=== PATIENT | female | born 1980 | race African-American/Black ===

== ENCOUNTER 2017-04-10 07:52 | Emergency (ER) | payer BC ==
[2017-04-10] MEDS ORDERED: ASPIRIN 81 MG TABLET, CHEWABLE PO ONE (08:12)
[2017-04-10 08:44] LABS: ABSOLUTE EOSINOPHILS # (AUTO) 0.1 10^3/uL (0.0-0.6); ABSOLUTE LYMPHOCYTES (AUTO) 2.3 10^3/uL (0.5-4.7); ABSOLUTE MONOCYTES (AUTO) 0.3 10^3/uL (0.1-1.4); ABSOLUTE NEUT (AUTO) 1.3 10^3/uL (1.7-8.2); BASOPHILS % (AUTO) 0.9 % (0-2); EOSINOPHILS % (AUTO) 1.3 % (0-6); HEMATOCRIT 40.9 % (36.0-47.0); HEMOGLOBIN 13.9 g/dL (12.0-15.5); LYMPHOCYTES % (AUTO) 57.3 % (13-45); MEAN CORPUSCULAR HEMOGLOBIN 28.9 pg (27.0-33.4); MEAN CORPUSCULAR VOLUME 85 fl (80-97); MONOCYTES % (AUTO) 8.3 % (3-13); PLATELET COUNT 256 10^3/uL (150-450); RED BLOOD COUNT 4.83 10^6/uL (3.72-5.28); SEGMENTED NEUTROPHILS % (AUTO) 32.2 % (42-78); TOTAL CELLS COUNTED % (AUTO) 100 %
--- NOTE | 2017-04-10 08:46 | EKG REPORT ---
SEVERITY:- NORMAL ECG - SINUS RHYTHM : Confirmed by: Etelvina Beard 10-Apr-2017 08:45:59
[2017-04-10 09:04] LABS: ALANINE AMINOTRANSFERASE 19 U/L (9-52); ALKALINE PHOSPHATASE 86 U/L (38-126); ANION GAP 7 (5-19); ASPARTATE AMINO TRANSFERASE 17 U/L (14-36); BILIRUBIN,DIRECT 0.2 mg/dL (0.0-0.4); BILIRUBIN,TOTAL 0.7 mg/dL (0.2-1.3); BLOOD UREA NITROGEN 10 mg/dL (7-20); CALCIUM 10.1 mg/dL (8.4-10.2); CARBON DIOXIDE 25 mmol/L (22-30); CHLORIDE 110 mmol/L (98-107); CREATINE KINASE 78 U/L (30-135); GLUCOSE 89 mg/dL (75-110); SODIUM 142.3 mmol/L (137-145); TOTAL PROTEIN 6.9 g/dL (6.3-8.2)
[2017-04-10 09:16] LABS: CREATINE KINASE MB < 0.22 ng/mL (<4.55); TROPONIN I < 0.012 ng/mL
--- NOTE | 2017-04-10 09:35 | RADIOLOGY REPORT (SQ) ---
EXAM DESCRIPTION: CHEST SINGLE VIEW COMPLETED DATE/TIME: 04/10/2017 9:23 am REASON FOR STUDY: cp rme COMPARISON: None. EXAM PARAMETERS: NUMBER OF VIEWS: One view. TECHNIQUE: Single frontal radiographic view of the chest acquired. RADIATION DOSE: NA LIMITATIONS: None. FINDINGS: LUNGS AND PLEURA: No opacities, masses or pneumothorax. No pleural effusion. MEDIASTINUM AND HILAR STRUCTURES: No masses. Contour normal. HEART AND VASCULAR STRUCTURES: Heart normal in size. Normal vasculature. BONES: No acute findings. HARDWARE: None in the chest. OTHER: No other significant finding. IMPRESSION: NO ACUTE RADIOGRAPHIC FINDING IN THE CHEST. TECHNICAL DOCUMENTATION: JOB ID: [id number] [employer]- All Rights Reserved
[2017-04-10 10:05] LABS: APPEARANCE,URINE SLIGHTLY-CLOUDY; BILIRUBIN,URINE NEGATIVE (NEGATIVE); COLOR,URINE YELLOW; GLUCOSE, URINE NEGATIVE (NEGATIVE); KETONES,URINE NEGATIVE (NEGATIVE); LEUKOCYTE ESTERASE,URINE NEGATIVE (NEGATIVE); NITRITE,URINE NEGATIVE (NEGATIVE); PROTEIN,URINE NEGATIVE (NEGATIVE); URINE SPECIFIC GRAVITY 1.019
--- NOTE | 2017-04-10 10:15 | ER Document Report ---
ED Cardiac - General Chief Complaint: Chest Pain Stated Complaint: CHEST PAINS Time Seen by Provider: 04/10/17 09:33 Mode of Arrival: Ambulatory Information source: Patient Notes: Patient presents complaining of left-sided chest pain that started yesterday. It has been intermittent. Nothing makes it better or worse. Patient states she has not had this pain before. No previous history of cardiac disease. No history of any type of cardiac evaluation in the past. No family history. She does smoke. She has taken Depakote shot in the past but not recently. Patient denies shortness of breath. No cough cold or congestion. She states she has been under a lot of stress. She had some numbness in her left arm and hand yesterday. He has been mild to moderate. It is been a pressure-like sensation. TRAVEL OUTSIDE OF THE [place] IN LAST 30 DAYS: No - Related Data Allergies/Adverse Reactions: No Known Allergies Allergy (Verified 04/10/17 09:31) Past Medical History - General Information source: Patient - Social History Smoking Status: Current Every Day Smoker Chew tobacco use (# tins/day): No Frequency of alcohol use: None Drug Abuse: None Family History: Reviewed & Not Pertinent Patient has suicidal ideation: No Patient has homicidal ideation: No Pulmonary Medical History: Reports: Hx Asthma, Hx COPD Neurological Medical History: Reports: Hx Migraine Renal/ Medical History: Denies: Hx Peritoneal Dialysis - Immunizations Immunizations up to date: Yes Hx Diphtheria, Pertussis, Tetanus Vaccination: Yes Review of Systems - Review of Systems Constitutional: denies: Chills, Fever Cardiovascular: denies: Chest pain, Palpitations Respiratory: denies: Cough, Short of breath Gastrointestinal: denies: Diarrhea, Vomiting -: Yes All other systems reviewed and negative Physical Exam - Vital signs Vitals: Temp Pulse Resp BP Pulse Ox 98.2 F 73 18 116/71 99 04/10/17 08:07 04/10/17 08:07 04/10/17 08:07 04/10/17 08:07 04/10/17 08:07 Interpretation: Normal - General General appearance: Appears well, Alert In distress: None - HEENT Head: Normocephalic, Atraumatic Eyes: Normal Pupils: PERRL - Respiratory Respiratory status: No respiratory distress Chest status: Nontender Breath sounds: Normal Chest palpation: Normal - Cardiovascular Rhythm: Regular Heart sounds: Normal auscultation Murmur: No - Abdominal Inspection: Normal Distension: No distension Bowel sounds: Normal Tenderness: Nontender Organomegaly: No organomegaly - Back Back: Normal, Nontender - Extremities General upper extremity: Normal inspection, Nontender, Normal color, Normal ROM , Normal temperature General lower extremity: Normal inspection, Nontender, Normal color, Normal ROM , Normal temperature, Normal weight bearing. No: Phyllis's sign - Neurological Neuro grossly intact: Yes Cognition: Normal Orientation: AAOx4 [place] Coma Scale Eye Opening: Spontaneous [place] Coma Scale Verbal: Oriented Veness[place] Coma Scale Motor: Obeys Commands [place] Coma Scale Total: 15 Speech: Normal Motor strength normal: LUE, RUE, LLE, RLE Sensory: Normal - Psychological Associated symptoms: Normal affect, Normal mood - Skin Skin Temperature: Warm Skin Moisture: Dry Skin Color: Normal Course - Vital Signs Vital signs: Temp Pulse Resp BP Pulse Ox 98.2 F 73 18 116/71 99 04/10/17 08:07 04/10/17 08:07 04/10/17 08:07 04/10/17 08:07 04/10/17 08:07 - Laboratory Result Diagrams: 04/10/17 08:25 04/10/17 08:25 Laboratory results interpreted by me: 04/10/17 04/10/17 04/10/17 08:25 08:25 09:45 Seg Neutrophils % 32.2 L Lymphocytes % 57.3 H Absolute Neutrophils 1.3 L Chloride 110 H Urine Blood SMALL H Urine Urobilinogen 4.0 H - EKG Interpretation by Ak EKG shows normal: Sinus rhythm Rate: Normal Rhythm: NSR [place]/QRS: No: Right axis deviation, Left axis deviation Discharge - Discharge Clinical Impression: Atypical chest pain Condition: Stable Disposition: HOME, SELF-CARE Instructions: Chest Pain of Unclear Cause ([facility]) Additional Instructions: Please call your primary care doctor as soon as possible to arrange follow-up. Please discuss an outpatient cardiac stress test. Forms: Return to Work
[2017-04-10 10:28] VITALS: BP 119/74
== END 2017-04-10 10:33 | disposition home or self-care (01) ==
LOC: ER 07:52
DX: R07.89 Other chest pain (principal); R20.0 Anesthesia of skin; F17.200 Nicotine dependence, unspecified, uncomplicated; J44.9 Chronic obstructive pulmonary disease, unspecified
CPT/HCPCS: 36415; 71045; 80053; 81001; 81025; 82550; 82553; 84484; 85025; 85379; 93005; 93010; 99285

== ENCOUNTER 2017-04-24 11:34 | Emergency (ER) | payer BC ==
[2017-04-24] MEDS ORDERED: HYDROCODONE/ACETAMINOPHEN 5-325 MG TABLET PO ONE (13:17)
--- NOTE | 2017-04-24 13:18 | ER Document Report ---
ED Medical Screen (RME) - General Chief Complaint: Cyst Stated Complaint: ABSCESS Time Seen by Provider: 04/24/17 13:17 Notes: Patient states she has a large Bartholin's cyst. She states she has had them in the past. She states this one spreads towards her buttocks. She also states she has had no bowel movement for 2 weeks. TRAVEL OUTSIDE OF THE [place] IN LAST 30 DAYS: No - Related Data Allergies/Adverse Reactions: No Known Allergies Allergy (Verified 04/24/17 11:36) Past Medical History - Social History Chew tobacco use (# tins/day): No Frequency of alcohol use: None Drug Abuse: None Pulmonary Medical History: Reports: Hx Asthma, Hx COPD Neurological Medical History: Reports: Hx Migraine Renal/ Medical History: Denies: Hx Peritoneal Dialysis - Immunizations Immunizations up to date: Yes Hx Diphtheria, Pertussis, Tetanus Vaccination: Yes Physical Exam - Vital signs Vitals: Temp Pulse Resp BP Pulse Ox 98.7 F 74 20 110/66 100 04/24/17 11:57 04/24/17 11:57 04/24/17 11:57 04/24/17 11:57 04/24/17 11:57 Course - Vital Signs Vital signs: Temp Pulse Resp BP Pulse Ox 98.7 F 74 20 110/66 100 04/24/17 11:57 04/24/17 11:57 04/24/17 11:57 04/24/17 11:57 04/24/17 11:57
[2017-04-24 14:22] LABS: APPEARANCE,URINE CLOUDY; BILIRUBIN,URINE NEGATIVE (NEGATIVE); COLOR,URINE YELLOW; GLUCOSE, URINE NEGATIVE (NEGATIVE); KETONES,URINE NEGATIVE (NEGATIVE); LEUKOCYTE ESTERASE,URINE LARGE (NEGATIVE); NITRITE,URINE NEGATIVE (NEGATIVE); PROTEIN,URINE NEGATIVE (NEGATIVE)
--- NOTE | 2017-04-24 15:53 | ER Document Report ---
HPI - HPI Patient complains to provider of: Abscess Onset: Other - Chronic for 8 years, worse over the past few days Onset/Duration: Worse Quality of pain: Sharp Pain Level: 5 Context: Patient complains of a Bartholin's abscess that has been present for the past 8 years. Patient states that over the past few days the area has become more tender with standing. Patient states that she has had an incision and drainage procedure in the past although the swollen area has never completely gone down. Patient denies any fever. Patient does states she has had some mild dysuria symptoms that started today. Associated Symptoms: Other - Bartholin's gland abscess. denies: Fever Exacerbated by: Movement Relieved by: Denies Similar symptoms previously: Yes Recently seen / treated by doctor: No - ROS ROS below otherwise negative: Yes Systems Reviewed and Negative: Yes All other systems reviewed and negative - CONSTITUTIONAL Constitutional: DENIES: Fever, Chills - GASTROINTESTINAL Gastrointestinal: DENIES: Nausea, Patient vomiting - URINARY Urinary: REPORTS: Dysuria. DENIES: Urgency, Frequency - REPRODUCTIVE Reproductive: DENIES: : - DERM Skin Color: Normal Notes: Abscess to right labia Past Medical History - General Information source: Patient - Social History Smoking Status: Current Every Day Smoker Chew tobacco use (# tins/day): No Frequency of alcohol use: None Drug Abuse: None Occupation: [employer] Family History: Reviewed & Not Pertinent Patient has suicidal ideation: No Patient has homicidal ideation: No Pulmonary Medical History: Reports: Hx Asthma, Hx COPD Neurological Medical History: Reports: Hx Migraine Renal/ Medical History: Denies: Hx Peritoneal Dialysis Surgical Hx: Negative - Immunizations Immunizations up to date: Yes Hx Diphtheria, Pertussis, Tetanus Vaccination: Yes Vertical Provider Document - CONSTITUTIONAL Agree With Documented VS: Yes Exam Limitations: No Limitations General Appearance: WD/WN, No Apparent Distress - INFECTION CONTROL TRAVEL OUTSIDE OF THE [place] IN LAST 30 DAYS: No - HEENT HEENT: Atraumatic, Normocephalic - NECK Neck: Normal Inspection, Supple - RESPIRATORY Respiratory: Breath Sounds Normal, No Respiratory Distress O2 Sat by Pulse Oximetry: 100 - CARDIOVASCULAR Cardiovascular: Regular Rate, Regular Rhythm - REPRODUCTIVE Female Genitalia: Abnormal Inspection - Large Bartholin's gland abscess to the right side - BACK Back: Normal Inspection - MUSCULOSKELETAL/EXTREMETIES Musculoskeletal/Extremeties: MAEW - NEURO Level of Consciousness: Awake, Alert, Appropriate Motor/Sensory: No Motor Deficit, No Sensory Deficit - DERM Integumentary: Warm, Abscess - Bartholin's gland Course - Re-evaluation Re-evalutation: 04/24/17 17:[address] Buitrago regarding patient presentation. Recommends obtaining culture and treating with Bactrim as well as covering for gonorrhea and chlamydia. Patient with resolved swollen lump to perineum after incision and drainage procedure. Patient tolerated procedure well. Patient without any fever. Patient with signs concerning for UTI as well. No concern for sepsis or pyelonephritis at this time. Good return precautions provided to patient. - Vital Signs Vital signs: Temp Pulse Resp BP Pulse Ox 98.7 F 74 20 110/66 100 04/24/17 11:57 04/24/17 11:57 04/24/17 11:57 04/24/17 11:57 04/24/17 11:57 - Laboratory Laboratory results interpreted by me: 04/24/17 13:43 Urine Blood MODERATE H Urine Urobilinogen 2.0 H Ur Leukocyte Esterase LARGE H 04/24/17 18:56 Labs- Entire Visit 04/24/17 13:43 Urine Color YELLOW Urine Appearance CLOUDY Urine pH 5.0 Ur Specific [place] 1.030 Urine Protein NEGATIVE Urine Glucose (UA) NEGATIVE Urine Ketones NEGATIVE Urine Blood MODERATE H Urine Nitrite NEGATIVE Urine Bilirubin NEGATIVE Urine Urobilinogen 2.0 H Ur Leukocyte Esterase LARGE H Urine WBC (Auto) 41 Urine RBC (Auto) 18 Urine Bacteria (Auto) TRACE Squamous Epi Cells Auto 16 Urine Mucus (Auto) MANY Urine Ascorbic Acid NEGATIVE Urine HCG, Qual NEGATIVE Procedures - Incision and Drainage Right Labia Type: Simple Anesthetic type: 1% Lidocaine Blade size: 11 I&D procedure: Other - surgical scrub Incision Method: Incision made by scalpel Amount/type of drainage: large amount of purulent drainage Female anatomy: 1 - Very large abscess to Bartholin's gland Discharge - Discharge Clinical Impression: Bartholin's gland abscess, Encounter for incision and drainage procedure UTI (urinary tract infection) Qualifiers: Urinary tract infection type: site unspecified Hematuria presence: with hematuria Qualified Code(s): N39.0 - Urinary tract infection, site not specified Condition: Stable Disposition: HOME, SELF-CARE Instructions: Abscess ([facility]), Azithromycin ([facility]), Oral Narcotic Medication ([facility]) , Post Incision and Drainage, Rocephin ([facility]), Trimethoprim-Sulfa ([facility]), Urinary Tract Infection ([facility]) Additional Instructions: Return immediately for any new or worsening symptoms Followup with your primary care provider, call tomorrow to make a followup appointment Wound cultures pending, we will call if you need any different treatment Prescriptions: Hydrocodone/Acetaminophen [Docena 5-325 Tablet] 1 each PO Q4 PRN #8 tablet PRN Reason: Sulfamethoxazole/Trimethoprim [Bactrim Ds Tablet] 1 each PO BID #20 tablet Forms: Return to Work Referrals: ALBAN AMIN FNP-C [Primary Care Provider] - Follow up tomorrow [facility] [Provider Group] - Follow up as needed
[2017-04-24] MEDS ORDERED: AZITHROMYCIN 250 MG TABLET PO ONE (17:34)
[2017-04-24] MEDS ORDERED: CEFTRIAXONE INJ 1000 MG VIAL IM ONE (17:34)
[2017-04-24] MEDS ORDERED: LIDOCAINE 1% INJ-PF (10 MG/ML) 30 ML SDV INJ ONE (17:34)
[2017-04-24] MEDS ORDERED: SULFAMETHOXAZOLE/TRIMETHOPRIM 800-160 MG TABLET PO ONE (17:34)
[2017-04-24 18:11] VITALS: BP 112/70
== END 2017-04-24 18:33 | disposition home or self-care (01) ==
LOC: ER 11:34
PROC: 0U9L0ZZ Drainage of Vestibular Gland, Open Approach (ICD-10-PCS; principal; 2017-04-24)
DX: N75.1 Abscess of Bartholin's gland (principal); N39.0 Urinary tract infection, site not specified; F17.200 Nicotine dependence, unspecified, uncomplicated; J44.9 Chronic obstructive pulmonary disease, unspecified
CPT/HCPCS: 99283; 96372; 87086; 87070; 87205; 81025; 81001; 56420; J3490; J0696; 87075; 87077

== ENCOUNTER 2017-06-13 06:53 | Observation (INO) | payer BC ==
[2017-06-06 11:38] LABS: HEMOGLOBIN 13.2 g/dL (12.0-15.5); MEAN CORPUSCULAR HEMOGLOBIN 28.8 pg (27.0-33.4); MEAN CORPUSCULAR VOLUME 85 fl (80-97); PLATELET COUNT 254 10^3/uL (150-450); RED BLOOD COUNT 4.61 10^6/uL (3.72-5.28); RED CELL DISTRIBUTION WIDTH 14.4 % (11.5-14.0)
[2017-06-06 11:47] LABS: APPEARANCE,URINE SLIGHTLY-CLOUDY; BILIRUBIN,URINE NEGATIVE (NEGATIVE); COLOR,URINE YELLOW; GLUCOSE, URINE NEGATIVE (NEGATIVE); KETONES,URINE NEGATIVE (NEGATIVE); LEUKOCYTE ESTERASE,URINE LARGE (NEGATIVE); NITRITE,URINE NEGATIVE (NEGATIVE); PROTEIN,URINE NEGATIVE (NEGATIVE); URINE SPECIFIC GRAVITY 1.018; UROBILINOGEN,URINE NEGATIVE mg/dL (<2.0)
[~2017-06-13 06:53] MED LIST: CEFAZOLIN 2 GM/D5W RTU 2 GM/50 ML RTUPB IV PRN; LACTATED RINGERS 1000 ML IV PRN; LIDOCAINE 0.5% INJ-PF (5 MG/ML) 50 ML SDV SUBCUT PRN
[2017-06-13] MEDS ORDERED: DIPHENHYDRAMINE HCL 50 MG/ML VIAL IV PRN ×2 (08:09→11:39)
[2017-06-13] MEDS ORDERED: PROMETHAZINE HCL INJ 25 MG/1 ML VIAL IV PRN ×3 (08:09→11:39)
[2017-06-13] MEDS ORDERED: FENTANYL CITRATE INJ/PF 100 MCG/2 ML AMPUL IV PRN ×6 (08:09→11:39)
[2017-06-13] MEDS ORDERED: MEPERIDINE HCL/PF INJ 25 MG/1 ML DISP.SYRIN IV PRN ×2 (08:09→11:39)
[2017-06-13] MEDS ORDERED: BUPIVACAINE HCL 0.5%-EPI 1:200000 INJ/PF 30 ML VIAL ONE (08:21)
[2017-06-13] MEDS ORDERED: FENTANYL CITRATE INJ/PF 100 MCG/2 ML AMPUL ONE ×2 (09:07→11:47)
[2017-06-13] MEDS ORDERED: PROPOFOL INJ 200 MG/20 ML VIAL IV ONE (09:07)
[2017-06-13] MEDS ORDERED: MIDAZOLAM 2 MG/2 ML INJ ONE (09:07)
[2017-06-13] MEDS ORDERED: ACETAMINOPHEN 100 ML IV ONE (09:07)
[2017-06-13] MEDS: ESTROGENS,CONJUGATED 0.625 MG/1 GM 30 GM TUBE PV ONE ×2 (10:37→14:46)
[2017-06-13] MEDS ORDERED: HYDROMORPHONE HCL INJ/PF 2 MG/ML AMPULE IM PRN (11:07)
[2017-06-13] MEDS ORDERED: OXYCODONE-ACETAMINOPHEN 5-325 MG TABLET PO PRN (11:24)
[2017-06-13] MEDS: OXYCODONE-ACETAMINOPHEN 5-325 MG TABLET PO PRN (13:39)
[2017-06-13] MEDS ORDERED: ONDANSETRON HCL INJ/PF 4 MG/2 ML SDV IV PRN (13:41)
[2017-06-14] MEDS: OXYCODONE-ACETAMINOPHEN 5-325 MG TABLET PO PRN ×2 (00:38→06:46)
[2017-06-14] MEDS ORDERED: DOCUSATE SODIUM 100 MG CAPSULE PO SCH (10:00)
[2017-06-14 13:20] VITALS: BP 108/57
--- NOTE | 2017-07-06 07:36 | PDOC PROGRESS REPORT ---
Subjective Progress Note for:: 06/14/17 Subjective:: tolerating po without difficulty, ambulating without difficulty, voiding without difficulty, pain well controlled. Reason For Visit: S/P RIGHT BARTHOLINS GLAND EXCISION Physical Exam - Physical Exam Vital Signs: Temp Pulse Resp BP Pulse Ox 98.3 F 74 17 111/56 L 94 06/14/17 11:09 06/14/17 11:09 06/14/17 11:09 06/14/17 11:09 06/14/17 11:09 Intake & Output 06/13/17 06/14/17 06/15/17 06:59 06:59 06:59 Intake Total 3790 Output Total 2450 Balance 1340 Weight 92.53 kg General appearance: PRESENT: no acute distress, well-developed, well-nourished Head exam: PRESENT: atraumatic, normocephalic Respiratory exam: PRESENT: clear to auscultation nuha, symmetrical, unlabored Cardiovascular exam: PRESENT: RRR. ABSENT: diastolic murmur, rubs, systolic murmur Vascular exam: PRESENT: normal capillary refill GI/Abdominal exam: PRESENT: normal bowel sounds, soft. ABSENT: distended, guarding, mass, organolmegaly, rebound, tenderness Rectal exam: PRESENT: deferred Extremities exam: PRESENT: full ROM. ABSENT: calf tenderness, clubbing, pedal edema Neurological exam: PRESENT: alert, awake, oriented to person, oriented to place , oriented to time, oriented to situation, CN II-XII grossly intact. ABSENT: motor sensory deficit Skin exam: PRESENT: dry, intact, warm. ABSENT: cyanosis, rash Result Laboratory Results: 06/06/17 11:20 Assessment & Plan - Diagnosis (1) Bartholin gland cyst Is this a current diagnosis for this admission?: Yes Plan: s/p removal. Doing well. Meets criteria for discharge with pain meds. Rx written. - Time Time Spent with patient: 15-24 minutes Medications reviewed and adjusted accordingly: Yes Anticipated discharge: Home Within: within 24 hours - Inpatient Certification Based on my medical assessment, after consideration of the patient's comorbidities, presenting symptoms, or acuity I expect that the services needed warrant INPATIENT care.: No I certify that my determination is in accordance with my understanding of Medicare's requirements for reasonable and necessary INPATIENT services [42 CFR 412.3e].: No - Plan Summary Plan Summary: Discharge to home.
--- NOTE | 2017-07-12 23:19 | Operative Report ---
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, Left periclitoral cyst POSTOPERATIVE DIAGNOSIS: AD OPERATION: Right Bartholins Gland Excision, Left periclitoral cyst excision SURGEON: KAT HERRERA ANESTHESIA: GA TISSUE REMOVED OR ALTERED: Right Bartholins gland, left periclitoral cyst COMPLICATIONS: None ESTIMATED BLOOD LOSS: 25 INTRAOPERATIVE FINDINGS: approx 1 x 2cm left periclitoral cyst benign in appearance, Right bartholins cyst persistent noted 4cm in diameter with multiple sites noted where prior word catheter placement had been accomplished for drainage, purulent fluid obtained with opening of bartholins gland PROCEDURE: Anesthesia: [Blue ZARATE, Rafi Gonzalez BEAM DYER RECESSED VAT] IVF: [950ml] UOP: [100ml] Indications: [36yo with a 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 Multiple (3-4) word catheters have been placed over the last 8 months for drainage and treatment of bartholins gland abscess with recurrence each time. Now she presents with additional left periclitoral cyst. Both sites are painful. Removal of these cysts were discussed with the patient at length and she desires to proceed with excision. The risks, benefits , alternatives were discussed with the patient and she desires to proceed with the planned procedure. ] Procedure: The patient was taken to the Operating Room where general anesthesia was obtained without difficulty. She was prepped and draped in the normal sterile fashion in the dorsal lithotomy position. Exam under anesthesia was performed and noted above. Local anesthetic was then injected over the site of the periclitoral cyst and the cyst was easily excised. The site was the closed with 3-0 monocryl in running fashion with good hemostasis noted. Attention was then turned to the Right Bartholins gland abscess which was injected with local anesthetic then longitudinal incision made overlying the gland abscess and the bartholins gland cyst was excised without difficulty. The site of excision was then closed in a layerd fashion for hemostasis. For additional hemostasis a small amount of surgicel was placed in the bed of the excision. The vaginal mucosa was then closed with running 3-0 monocryl in a running fashion. All sites were hemostatic. Copious irrigation performed prior to closure. Vaginal packing with premarin covered kerlex applied. Wright to gravity placed due to vaginal packing. Ancef 2 grams given due to risk of infection with this procedure. Sponge lap needle and instrument counts are correct 2. The patient tolerated the procedure well and was taken to the recovery area awake and in stable condition.
--- NOTE | 2017-07-12 23:22 | PDOC DISCHARGE SUMMARY ---
General - Admit/Disc Date/PCP Admission Date/Primary Care Provider: 06/13/17 11:08 ONEAL CHEEK Discharge Date: 06/14/17 - Discharge Diagnosis (1) Bartholin gland cyst Is this a current diagnosis for this admission?: Yes Summary: Pt admitted for removal which was accomplished on 06/13. Admitted overnight for pain control and for vaginal packing. Vaginal packing removed and patient met her DTV and then she was discharged home. - Additional Information Resuscitation Status: Full Code Discharge Diet: As Tolerated Discharge Activity: Activity As Tolerated, Pelvic Rest Prescriptions: Docusate Sodium [Colace 100 mg Capsule] 100 mg PO BID #60 capsule Home Medications: Albuterol Sulfate [Proair HFA] 2 puff PO QID PRN 06/06/17 Docusate Sodium [Colace 100 mg Capsule] 100 mg PO BID #60 capsule 06/14/17 Oxycodone HCl/Acetaminophen [Percocet 5-325 mg Tablet] 1 tab PO Q4HP PRN tablet 06/14/17 Oxycodone HCl/Acetaminophen [Percocet 5-325 mg Tablet] 2 tab PO Q4HP PRN tablet 06/14/17 Nitrofurantoin/Nitrofuran Mac [Macrobid 100 mg Capsule] 1 tab PO BID #10 capsule 07/04/17 Phenazopyridine HCl [Pyridium 200 mg Tablet] 200 mg PO TID #15 tablet 07/04/17 History of Present Illness Patient complains of: right bartholins gland abscess recurrent History of Present Illness: DOTTIE HUNT is a 36 year old female admitted for removal which was accomplished on 06/13. Admitted overnight for pain control and for vaginal packing. Vaginal packing removed and patient met her DTV and then she was discharged home. Hospital Course Hospital Course: Pt admitted for removal which was accomplished on 06/13. Admitted overnight for pain control and for vaginal packing. Vaginal packing removed on 06/14 and patient met her DTV and then she was discharged home. Physical Exam - Physical Exam Vital Signs: Temp Pulse Resp BP Pulse Ox 98.3 F 74 17 111/56 L 94 06/14/17 11:09 06/14/17 11:09 06/14/17 11:09 06/14/17 11:09 06/14/17 11:09 Intake & Output 06/13/17 06/14/17 06/15/17 06:59 06:59 06:59 Intake Total 3790 Output Total 2450 Balance 1340 Weight 92.53 kg General appearance: PRESENT: no acute distress, well-developed, well-nourished Head exam: PRESENT: atraumatic, normocephalic Respiratory exam: PRESENT: clear to auscultation nuha, symmetrical, unlabored Cardiovascular exam: PRESENT: RRR. ABSENT: diastolic murmur, rubs, systolic murmur GI/Abdominal exam: PRESENT: normal bowel sounds, soft. ABSENT: distended, guarding, mass, organolmegaly, rebound, tenderness Rectal exam: PRESENT: deferred Gentrourinary exam: PRESENT: other - vaginal packing removed already upon my exam. no hematoma, good hemostasis Neurological exam: PRESENT: alert, awake, oriented to person, oriented to place , oriented to time, oriented to situation, CN II-XII grossly intact. ABSENT: motor sensory deficit Psychiatric exam: PRESENT: appropriate affect, normal mood. ABSENT: homicidal ideation, suicidal ideation Result Laboratory Results: 06/06/17 11:20 Plan Discharge Plan: Discharge to home Time Spent: Less than 30 Minutes
== END 2017-06-14 13:30 | disposition home or self-care (01) ==
LOC: OROUT 06:53 → 2N 11:08 → OROUT 16:23
PROVIDERS: ADMIT Student in an Organized Health Care Education/Training Program; ATTEND Student in an Organized Health Care Education/Training Program
PROC: 0UBLXZZ Excision of Vestibular Gland, External Approach (ICD-10-PCS; 2017-06-13)
PROC: 0UB Female Reproductive System, Excision (ICD-10-PCS; principal; 2017-06-13 09:00)
DX: N75.0 Cyst of Bartholin's gland (principal); N90.7 Vulvar cyst; Z01.818 Encounter for other preprocedural examination
CPT/HCPCS: 36415; 85027; 81025; 81001; 88304 ×2; 58999; 56740; G0378 ×2; G0379; J2250; J3490 ×2; J3010; J2550; J2704; J0690; J0131; 940

== ENCOUNTER 2017-07-04 10:25 | Emergency (ER) | payer BC ==
[2017-07-04 10:39] VITALS: BP 123/69
--- NOTE | 2017-07-04 10:48 | ER Document Report ---
ED GI/ - General Chief Complaint: Urinary Problem Stated Complaint: URINARY PROBLEMS Time Seen by Provider: 07/04/17 10:43 Notes: The patient is a 36-year-old female who presents with 2 weeks of dysuria. She had a Bartholin's cyst drained by Dr. Herrera 3 weeks ago and was placed on Bactrim, Cipro, Keflex and Macrobid after the procedure. Patient denies fevers , nausea, vomiting, concerned about STDs, vaginal discharge, flank pain or abdominal pain. TRAVEL OUTSIDE OF THE [place] IN LAST 30 DAYS: No - Related Data Allergies/Adverse Reactions: No Known Allergies Allergy (Verified 04/24/17 11:36) Past Medical History - General Information source: Patient - Social History Smoking Status: Unknown if Ever Smoked Family History: Reviewed & Not Pertinent - Past Medical History Cardiac Medical History: Denies: Hx Coronary Artery Disease, Hx Hypertension Pulmonary Medical History: Reports: Hx Asthma - seasonal allergies Denies: Hx Bronchitis, Hx COPD, Hx Pneumonia Neurological Medical History: Reports: Hx Migraine. Denies: Hx Cerebrovascular Accident, Hx Seizures Renal/ Medical History: Denies: Hx Peritoneal Dialysis Musculoskeltal Medical History: Denies Hx Arthritis - Immunizations Immunizations up to date: Yes Hx Diphtheria, Pertussis, Tetanus Vaccination: No Review of Systems - Review of Systems Notes: REVIEW OF SYSTEMS: CONSTITUTIONAL: -fevers, -chills EENT: -eye pain, -difficulty swallowing, -nasal congestion CARDIOVASCULAR: -chest pain, -syncope. RESPIRATORY: -cough, -SOB GASTROINTESTINAL: -abdominal pain, -nausea, -vomiting, -diarrhea GENITOURINARY: +dysuria, -hematuria MUSCULOSKELETAL: -back pain, -neck pain SKIN: -rash or skin lesions. HEMATOLOGIC: -easy bruising or bleeding. LYMPHATIC: -swollen, enlarged glands. NEUROLOGICAL: -altered mental status or loss of consciousness, -headache, - neurologic symptoms PSYCHIATRIC: -anxiety, -depression. ALL OTHER SYSTEMS REVIEWED AND NEGATIVE. Physical Exam - Vital signs Vitals: Temp Pulse Resp BP Pulse Ox 98.0 F 85 14 123/69 98 07/04/17 10:38 07/04/17 10:38 07/04/17 10:38 07/04/17 10:38 07/04/17 10:38 - Notes Notes: PHYSICAL EXAMINATION: GENERAL: Well-appearing, well-nourished and in no acute distress. HEAD: Atraumatic, normocephalic. EYES: Pupils equal round and reactive to light, extraocular movements intact, sclera anicteric, conjunctiva are normal. ENT: nares patent, oropharynx clear without exudates. Moist mucous membranes. NECK: Normal range of motion, supple without lymphadenopathy LUNGS: Breath sounds clear to auscultation bilaterally and equal. No wheezes rales or rhonchi. HEART: Regular rate and rhythm without murmurs ABDOMEN: Soft, nontender, normoactive bowel sounds. No guarding, no rebound. No masses appreciated. EXTREMITIES: Normal range of motion, no pitting or edema. No cyanosis. NEUROLOGICAL: Cranial nerves grossly intact. Normal speech, normal gait. Normal sensory and motor exams. PSYCH: Normal mood, normal affect. SKIN: Warm, Dry, normal turgor, no rashes or lesions noted. Course - Re-evaluation Re-evalutation: Patient appears well. Vital signs are normal. She does have evidence of a acute urinary tract infection. 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 - Vital Signs Vital signs: Temp Pulse Resp BP Pulse Ox 98.0 F 85 14 123/69 98 07/04/17 10:38 07/04/17 10:38 07/04/17 10:38 07/04/17 10:38 07/04/17 10:38 - Laboratory Laboratory results interpreted by me: 07/04/17 10:53 Urine Protein 30 H Urine Blood MODERATE H Ur Leukocyte Esterase LARGE H Discharge - Discharge Clinical Impression: Dysuria UTI (urinary tract infection) Qualifiers: Urinary tract infection type: acute cystitis Hematuria presence: with hematuria Qualified Code(s): N30.01 - Acute cystitis with hematuria Condition: Stable Disposition: HOME, SELF-CARE Additional Instructions: URINARY TRACT INFECTION: Your evaluation indicates that you have a urinary tract infection. This is due to germs growing in the bladder. This is a common problem. This infection usually responds quickly to antibiotics. Your antibiotic should be taken exactly as prescribed. Drink plenty of fluids -- three to four quarts a day. Occasionally, a bladder anesthetic will be prescribed to help stop the feeling of urgency until the antibiotic has a chance to clear the infection. This may cause your urine to be dark orange. Certain urine infections require a culture. If the doctor obtained a culture, the results will be back in two days. You should call to see if a change in treatment is needed. A repeat urinalysis after you finish treatment is often recommended. The physician will let you know if further testing is required. Call the doctor if you develop fever, chills, flank pain, inability to urinate, or blood in the urine. ANTIBIOTIC THERAPY: You have been given an antibiotic prescription. It's important that you take all the medication, unless instructed otherwise by your physician. Failure to complete the entire course can result in relapse of your condition. Common side effects of antibiotics include nausea, intestinal cramping, or diarrhea. Women may develop vaginal yeast infections, and babies can get yeast (thrush) in the mouth following the use of antibiotics. Contact your physician if you develop significant side effects from this medication. Allergy to this antibiotic can result in hives, wheezing, faintness, or itching. If symptoms of allergy occur, stop the medication and call the doctor. NITROFURANTOIN (MACRODANTIN, MACROBID): You have received a prescription for nitrofurantoin (Macrodantin). This antibiotic is used for urinary tract infections. Women who are or nursing should notify the physician before taking this medicine. If you have ever had a problem caused by this medication in the past, be sure the physician is aware of it. Common side effects of this medicine include nausea, vomiting, or decreased appetite. Notify your physician if these side effects become severe. Immediately stop this medicine and call the physician if you develop cough , shortness of breath, chest pain, weakness, jaundice (yellow color of the skin and whites of the eyes), or a skin rash. URINARY ANESTHETIC AGENT: You have been given a medication (Pyridium) for urinary tract discomfort. This medicine numbs the lining of the bladder and urethra, resulting in less pain, burning, and urgency. You may take it as needed, according to instructions. When the symptoms resolve, you can stop this medication (be sure to continue any other medications the doctor has given you). This medicine turns the urine a dark orange. It may stain underwear. Occasionally, it can cause nausea. Return for evaluation if there are any unexpected effects, such as itching, hives, or shortness of breath. FOLLOW-UP CARE: If you have been referred to a physician for follow-up care, call the physician s office for an appointment as you were instructed or within the next two days. If you experience worsening or a significant change in your symptoms, notify the physician immediately or return to the Emergency Department at any time for re-evaluation. Prescriptions: Nitrofurantoin/Nitrofuran Mac [Macrobid 100 mg Capsule] 1 tab PO BID #10 capsule Phenazopyridine HCl [Pyridium 200 mg Tablet] 200 mg PO TID #15 tablet Referrals: KAT HERRERA MD [ACTIVE STAFF] - Follow up as needed
[2017-07-04 11:06] LABS: APPEARANCE,URINE CLOUDY; BILIRUBIN,URINE NEGATIVE (NEGATIVE); COLOR,URINE YELLOW; GLUCOSE, URINE NEGATIVE (NEGATIVE); KETONES,URINE NEGATIVE (NEGATIVE); LEUKOCYTE ESTERASE,URINE LARGE (NEGATIVE); NITRITE,URINE NEGATIVE (NEGATIVE); PROTEIN,URINE 30 mg/dL (NEGATIVE); URINE SPECIFIC GRAVITY 1.016; UROBILINOGEN,URINE NEGATIVE mg/dL (<2.0)
== END 2017-07-04 11:28 | disposition home or self-care (01) ==
LOC: ER 10:25
DX: N30.01 Acute cystitis with hematuria (principal); R30.0 Dysuria; J45.909 Unspecified asthma, uncomplicated
CPT/HCPCS: 81001; 81025; 99283